=== PATIENT | male | born 2000 ===

== ENCOUNTER → 2024-12-31 | Outpatient (REF) | payer OTHER ==
[2024-12-31 13:07] LABS: SEMEN APPEARANCE OPAQUE (OPAQUE); SEMEN VISCOSITY VISCOUS (LIQUID); SEMEN VOLUME 3.9 ml (2.0-5.0)
[2024-12-31 13:08] LABS: SPERM CONCENTRATION 44.5 M/ml (>=15.0); TOTAL PROGRESSIVE SPERM 71.0 M/Ejac.; WBC CONCENTRATION >1 M/ml (<=1 M/ml)
== END ==
LOC: M LAB REF 12:39
PROVIDERS: ATTEND General Practice
DX: N46.9 Male infertility, unspecified (principal)